=== PATIENT | female | born 1955 | race Two or more races ===

== ENCOUNTER 2017-08-29 17:28 | Emergency (ER) | payer OTHER ==
--- NOTE | 2017-08-29 17:33 | PDOC ---
Rapid Medical Evaluation Time Seen by Provider: 08/29/17 17:32 Medical Evaluation: Allergies Allergy/AdvReac Type Severity Reaction Status Date / Time No Known Allergies Allergy Verified 08/29/17 17:30 I have performed a brief in-person evaluation of this patient. The patient presents with a chief complaint of: cough, runny nose, sore throat , body aches x 3 days Pertinent physical exam findings: non toxic appearing. congested voice. I have ordered the following: nothing The patient will proceed to the ED for further evaluation.
[2017-08-29 17:35] VITALS: BP 130/76; PULSE 88; TEMP 99; BMI 25.0
--- NOTE | 2017-08-29 18:39 | PDOC ---
History of Present Illness - General Chief Complaint: Cold Symptoms Stated Complaint: FATIGUE Time Seen by Provider: 08/29/17 17:32 History Source: Patient Exam Limitations: No Limitations - History of Present Illness Initial Comments: 08/29/17 18:39 Patient is a [61-year-old female, denies any significant medical history, currently on no medication reports on August 27 developed chills, headache, tactile fever, body aches, sudden onset. Nasal congestion now. Denies any chest pain or shortness of breath.] Past Medical History: [Denies]. Allergies: No known allergies Medications: [None] Family History: Non-contributory Social History: Denies smoking, alcohol use, or IVDU Vital signs on arrival are [notable for temperature of 99] Review of Systems GENERAL/CONSTITUTIONAL: [Fever and chills, bodyaches. No weakness. No weight change.] HEAD, EYES, EARS, NOSE AND THROAT: [No change in vision. No ear pain or discharge. No sore throat. Nasal congestion.] CARDIOVASCULAR: [No chest pain or shortness of breath.] RESPIRATORY: [No cough, wheezing, or hemoptysis.] GASTROINTESTINAL: [No nausea, vomiting, diarrhea or constipation. No rectal bleeding.] GENITOURINARY: [No dysuria, frequency, or change in urination.] MUSCULOSKELETAL: [No joint or muscle swelling or pain. No neck or back pain.] SKIN AND BREASTS: [No rash or easy bruising.] NEUROLOGIC: [No headache, vertigo, loss of consciousness, or loss of sensation.] PSYCHIATRIC: [No depression or anxiety.] ENDOCRINE: [No increased thirst. No abnormal weight change.] HEMATOLOGIC/LYMPHATIC: [No anemia, easy bleeding, or history of blood clots.] ALLERGIC/IMMUNOLOGIC: [No hives or skin allergy. No latex allergy.] Physical Exam: GENERAL: [The patient is awake, alert, and fully oriented, in no acute distress. ] EYES: [Pupils equal, round and reactive to light, extraocular movements intact, sclera anicteric, conjunctiva clear.] ENT: [Ears normal, nares patent, oropharynx clear without exudates. Moist mucous membranes. No uvula deviation] NECK: [Normal range of motion, supple without lymphadenopathy, JVD, or masses.] LUNGS: [Breath sounds equal, clear to auscultation bilaterally. No wheezes, and no crackles.] HEART: [Regular rate and rhythm, normal S1 and S2 without murmur, rub or gallop. ] ABDOMEN: [Soft, nontender, normoactive bowel sounds. No guarding, no rebound. No masses. No bruising or abrasions] MUSCULOSKELETAL: [Normal range of motion, no edema. No clubbing or cyanosis. No cords, erythema, or tenderness. No CVA Tenderness with fist.] NEUROLOGICAL: [Cranial nerves II through XII grossly intact. Normal speech, normal gait.] SKIN: [Warm, Dry, normal turgor, no rashes or lesions noted.] Past History - Past Medical History Allergies/Adverse Reactions: Allergies Allergy/AdvReac Type Severity Reaction Status Date / Time No Known Allergies Allergy Verified 08/29/17 17:30 Home Medications: Ambulatory Orders Aspirin [Aspirin EC] 81 mg PO ASDIR 01/25/15 Azithromycin [Zithromax 250mg Tablets -] 250 mg PO UTDICT #6 tab 08/29/17 Oseltamivir Phosphate [Tamiflu -] 75 mg PO BID #10 capsule 08/29/17 COPD: No - Immunization History Immunization Up to Date: No - Suicide/Smoking/Psychosocial Hx Smoking Status: Yes Smoking History: Never smoked Number of Cigarettes Smoked Daily: 0 Information on smoking cessation initiated: No Hx Alcohol Use: No Drug/Substance Use Hx: No Substance Use Type: None *Physical Exam - Vital Signs Last Vital Signs Temp Pulse Resp BP Pulse Ox 99.0 F 88 18 130/76 100 08/29/17 17:32 08/29/17 17:32 08/29/17 17:32 08/29/17 17:32 08/29/17 17:32 Medical Decision Making - Medical Decision Making 08/29/17 18:47 A/P: Patient here for evaluation of influenza-type illness, upper respiratory infection will DC patient on Tamiflu and azithromycin. to maintain good hydration, follow-up and return to emergency department if any dizziness, unable to eat or drink, uncontrolled fever, or any other concerns. *DC/Admit/Observation/Transfer Diagnosis at time of Disposition: Influenza-like illness Upper respiratory infection Qualifiers: URI type: unspecified URI Qualified Code(s): J06.9 - Acute upper respiratory infection, unspecified - Discharge Dispostion Disposition: HOME Condition at time of disposition: Stable Admit: No - Prescriptions Prescriptions: Azithromycin [Zithromax 250mg Tablets -] 250 mg PO UTDICT #6 tab Oseltamivir Phosphate [Tamiflu -] 75 mg PO BID #10 capsule - Referrals - Patient Instructions Additional Instructions: You have been diagnosed with influenza-like illness Please take the medication as directed. You are contagious. Please attempt to avoid contact of multiple individuals as this will cause the infection to spread. Return to emergency room if shortness of breath, wheezing, fever greater than 101, chest pain, or fainting occurs. Please make sure to drink lots of fluids, Gatorade, juices. Please alternate Motrin and Tylenol as needed for fever. - Post Discharge Activity Forms/Work/School Notes: Back to Work
== END 2017-08-29 18:46 | disposition home or self-care (01) ==
LOC: JERFT 17:28
DX: J11.1 Influenza due to unidentified influenza virus with other respiratory manifestations (principal)
CPT/HCPCS: 99281-25

== ENCOUNTER 2019-07-07 18:27 | Emergency (ER) | payer OTHER ==
--- NOTE | 2019-07-07 19:03 | PDOC ---
Rapid Medical Evaluation Time Seen by Provider: 07/07/19 18:56 Medical Evaluation: Allergies Allergy/AdvReac Type Severity Reaction Status Date / Time No Known Allergies Allergy Verified 08/29/17 17:30 07/07/19 19:01 I have performed a brief in-person evaluation of this patient. The patient presents with a chief complaint of:cough w/ body aches, malaise, runny nose, f/c x 2 days. Taking OTC meds w/ minimal relief Pertinent physical exam findings:T 99.1, rest of exam unremarkable I have ordered the following:flu The patient will proceed to the ED for further evaluation. Discharge Disposition - Diagnosis Viral syndrome - Referrals - Patient Instructions - Post Discharge Activity
[2019-07-07 19:53] VITALS: BP 110/62; PULSE 89; TEMP 99.1; BMI 24.3
--- NOTE | 2019-07-07 21:44 | PDOC ---
History of Present Illness - General Chief Complaint: Cold Symptoms Stated Complaint: COLD SYMPTOMS Time Seen by Provider: 07/07/19 18:56 - History of Present Illness Initial Comments: 63 year old female with PMHof headaches presenting with cough, fevers, and body aches for the past 3 days. States she has positive sick contacts with the same symptoms. She has tried Tylenol with good relief of body aches but light dry cough has remained. She also admits to congestion. Denies chest pain, nausea, vomiting, diarrhea, or other symptoms. She works in an office. 07/07/19 22:05 Past History - Past Medical History Allergies/Adverse Reactions: Allergies Allergy/AdvReac Type Severity Reaction Status Date / Time No Known Allergies Allergy Verified 07/07/19 19:48 Home Medications: Ambulatory Orders Aspirin [Aspirin EC] 81 mg PO ASDIR 01/25/15 Azithromycin [Zithromax 250mg Tablets -] 250 mg PO UTDICT #6 tab 08/29/17 Oseltamivir Phosphate [Tamiflu -] 75 mg PO BID #10 capsule 08/29/17 Oseltamivir Phosphate [Tamiflu -] 75 mg PO BID #10 capsule 07/07/19 COPD: No - Immunization History Immunization Up to Date: No - Psycho Social/Smoking Cessation Hx Smoking Status: Yes Smoking History: Never smoked Have you smoked in the past 12 months: No Number of Cigarettes Smoked Daily: 0 Information on smoking cessation initiated: No Hx Alcohol Use: No Drug/Substance Use Hx: No Substance Use Type: None Review of Systems - Review of Systems Constitutional: No: Chills, Diaphoresis, Fever, Loss of Appetite HEENTM: No: Blurred Vision, Tearing Respiratory: Yes: Cough, Productive cough. No: Orthopnea, Shortness of Breath, Wheezing Cardiac (ROS): No: Chest Pain, Edema, Irregular Heart Rate ABD/GI: No: Diarrhea, Nausea, Vomiting : No: Dysuria, Discharge, Frequency Musculoskeletal: No: Back Pain, Gout, Joint Pain Integumentary: No: Bruising, Lesions Neurological: No: Headache, Numbness Psychiatric: No: Anxiety, Depression Hematologic/Lymphatic: No: Anemia, Blood Clots, Easy Bleeding *Physical Exam - Vital Signs Last Vital Signs Temp Pulse Resp BP Pulse Ox 99.1 F 89 17 110/62 99 07/07/19 19:45 07/07/19 19:45 12/18/19 19:45 07/07/19 19:45 07/07/19 19:45 - Physical Exam General Appearance: Yes: Nourished, Appropriately Dressed. No: Apparent Distress HEENT: positive: EOMI, JULIO, Normal Voice. negative: Normal ENT Inspection ( nasal congestion) Neck: positive: Trachea midline, Normal Thyroid, Supple. negative: Tender, Rigid Respiratory/Chest: positive: Lungs Clear, Normal Breath Sounds. negative: Chest Tender, Respiratory Distress, Accessory Muscle Use Cardiovascular: positive: Regular Rhythm, Regular Rate Gastrointestinal/Abdominal: positive: Normal Bowel Sounds, Flat, Soft. negative : Tender Lymphatic: negative: Adenopathy, Tenderness Musculoskeletal: positive: Normal Inspection. negative: Decreased Range of Motion Extremity: positive: Normal Capillary Refill, Normal Inspection, Normal Range of Motion. negative: Tender Integumentary: positive: Normal Color, Dry, Warm Neurologic: positive: Fully Oriented, Alert, Normal Mood/Affect, Normal Response , Motor Strength 5/5 Medical Decision Making - Medical Decision Making 07/07/19 22:10 63 year year previously healthy female presenting with myalgias, fevers, cough, and generally feeling unwell. Flu B positive. Will DC with oseltamivir and PCP follow up. Discharge - Discharge Information Problems reviewed: Yes Clinical Impression/Diagnosis: Viral syndrome Condition: Stable Disposition: HOME - Admission No - Additional Discharge Information Prescriptions: Oseltamivir Phosphate [Tamiflu -] 75 mg PO BID #10 capsule - Follow up/Referral - Patient Discharge Instructions Patient Printed Discharge Instructions: Influenza Additional Instructions: Please take the Tamiflu as instructed. Please use Tylenol at needed for the body aches. Please see your PCP next week. Please return to the ED if you have new or worsening symptoms. - Post Discharge Activity
--- NOTE | 2019-07-07 21:46 | PDOC ---
Attending Attestation - Resident Resident Name: Carla Patel - ED Attending Attestation I have performed the following: I have examined & evaluated the patient, The case was reviewed & discussed with the resident, I agree w/resident's findings & plan - HPI HPI: 07/07/19 22:59 see resident hpi - Physicial Exam PE: 07/07/19 23:00 agree with resident exam - Medical Decision Making 07/07/19 23:00 63-year-old female with fever and body aches, influenza B is positive DC on Tamiflu Patient is well-appearing with no respiratory distress, she will follow with primary care
[2019-07-07] MEDS ORDERED: OSELTAMIVIR PHOSPHATE 75 MG CAPSULE PO ONE (22:16)
[2019-07-07] MEDS ORDERED: OSELTAMIVIR PHOSPHATE 75 MG CAPSULE ONE (22:27)
== END 2019-07-07 22:31 | disposition home or self-care (01) ==
LOC: JERFT 18:27 → JER 18:27 → JERFT 22:31
DX: J10.1 Influenza due to other identified influenza virus with other respiratory manifestations (principal)
CPT/HCPCS: 87804; 99282-25